=== PATIENT | female | born 1940 | race Caucasian/White ===

== ENCOUNTER 2017-05-03 12:40 | Inpatient (IN) | payer MEDICARE, OTHER ==
[2017-05-03] MEDS: IV NORMAL SALINE 1000ML BAG 1,000 ML IV ×2 (12:48→16:25)
[2017-05-03 13:15] LABS: ADD MAN DIFF? NO
[2017-05-03 13:18] LABS: BASO % 1 % (0-3); EOS # 0.1 x10^3/uL (0.0-0.7); EOS % 1 % (0-3); HEMATOCRIT 38.9 % (36.0-47.0); HEMOGLOBIN 12.6 g/dL (12.0-15.5); LYMPH # 1.7 x10^3/uL (1.0-4.8); LYMPH % 19 % (24-48); MEAN CORPUSCULAR HEMOGLOBIN 30 pg (25-35); MEAN CORPUSCULAR HGB CONC 32 g/dL (31-37); MEAN CORPUSCULAR VOLUME 93 fL (79-100); MONO # 0.7 x10^3/uL (0.0-1.1); MONO % 7 % (0-9); NEUT # 6.8 x10^3uL (1.8-7.7); NEUT % 73 % (31-73); PLATELET COUNT 205 x10^3/uL (140-400); RED BLOOD COUNT 4.21 x10^6/uL (3.50-5.40); RED CELL DISTRIBUTION WIDTH 14.3 % (11.5-14.5); WHITE BLOOD COUNT 9.3 x10^3/uL (4.0-11.0)
[2017-05-03 13:34] LABS: ANION GAP 12 (6-14); BLOOD UREA NITROGEN 26 mg/dL (7-20); CALCIUM 8.7 mg/dL (8.5-10.1); CARBON DIOXIDE 25 mmol/L (21-32); CHLORIDE 105 mmol/L (98-107); CREATININE 0.6 mg/dL (0.6-1.0); GFR 97.7; GLUCOSE 277 mg/dL (70-99); POTASSIUM 4.4 mmol/L (3.5-5.1); SODIUM 142 mmol/L (136-145)
[2017-05-03 13:41] LABS: ALBUMIN 3.6 g/dL (3.4-5.0); ALK PHOS 73 U/L (46-116); ALT (SGPT) 25 U/L (14-59); AST (SGOT) 22 U/L (15-37); DIRECT BILIRUBIN < 0.1 mg/dL (0.0-0.2); LIPASE 80 U/L (73-393); MAGNESIUM 1.7 mg/dL (1.8-2.4); TOTAL BILIRUBIN 0.7 mg/dL (0.2-1.0)
[2017-05-03 13:42] LABS: TROPONINI < 0.017 ng/mL (0.000-0.055)
[2017-05-03 14:01] LABS: CKMB INDEX 0.7 % (0-4); CKMB MASS 0.6 ng/mL (0.0-3.6); CREATINE KINASE 83 U/L (26-192)
[2017-05-03 14:01] LABS: NT-PRO BNP 141 pg/mL (0-124)
[2017-05-03] MEDS ORDERED: ONDANSETRON PF 4 MG/2 ML VIAL. IV (14:45)
[2017-05-03 15:40] LABS: POC GLUCOSE 202 mg/dL (70-99)
[2017-05-03 16:29] LABS: POC GLUCOSE 209 mg/dL (70-99)
[2017-05-03] MEDS: ASCORBIC ACID 500 MG TABLET PO (16:40)
[2017-05-03] MEDS: OMEGA-3 FATTY ACIDS/FISH OIL 1,000 MG CAPSULE. PO (16:40)
[2017-05-03] MEDS: ASPIRIN ENTERIC COATED 81 MG TABLET.DR. PO (16:40)
[2017-05-03 16:51] LABS: BILIRUBIN,URINE NEGATIVE (NEG); CLARITY,URINE CLEAR; COLOR,URINE YELLOW; GLUCOSE,URINE >=1000 mg/dL (NEG); NITRITE,URINE NEGATIVE (NEG); PH,URINE 5.5; PROTEIN,URINE NEGATIVE (NEG-TRACE); UROBILINOGEN,URINE 0.2 mg/dL (0.2 mg/dL)
[2017-05-03] MEDS: INSULIN ASPART 300 UNITS/3 ML INSULN.PEN SQ (17:01)
[2017-05-03 17:13] LABS: BACTERIA,URINE FEW /HPF (0-FEW); RBC,URINE 0 /HPF (0-2); SQUAMOUS EPITHELIAL CELL,UR FEW /LPF
[2017-05-03 18:49] LABS: TROPONINI < 0.017 ng/mL (0.000-0.055)
[2017-05-03] MEDS: diazePAM 5 MG TABLET PO (20:44)
[2017-05-03] MEDS: ATORVASTATIN CALCIUM 10 MG TABLET. PO (20:44)
[2017-05-03 20:48] LABS: POC GLUCOSE 112 mg/dL (70-99)
[2017-05-03] MEDS: INSULIN DETEMIR 300 UNITS/3 ML INSULN.PEN. SQ (20:51)
[2017-05-03 21:39] LABS: TROPONINI < 0.017 ng/mL (0.000-0.055)
[2017-05-04] MEDS: IV NORMAL SALINE 1000ML BAG 1,000 ML IV (01:59)
[2017-05-04] MEDS: INSULIN ASPART 300 UNITS/3 ML INSULN.PEN SQ (07:30)
[2017-05-04] MEDS ORDERED: DEXTROSE 50% 25 GM / 50ML DISP.SYRIN. IV (07:45)
[2017-05-04] MEDS: DEXTROSE 50% 25 GM / 50ML DISP.SYRIN. IV (07:53)
[2017-05-04 07:58] LABS: POC GLUCOSE 27 mg/dL (70-99)
[2017-05-04 08:00] LABS: POC GLUCOSE 211 mg/dL (70-99)
[2017-05-04 08:11] LABS: POC GLUCOSE 194 mg/dL (70-99)
[2017-05-04 08:31] LABS: ADD MAN DIFF? NO
[2017-05-04 08:35] LABS: BASO % 0 % (0-3); EOS # 0.1 x10^3/uL (0.0-0.7); EOS % 1 % (0-3); HEMATOCRIT 32.5 % (36.0-47.0); HEMOGLOBIN 10.8 g/dL (12.0-15.5); LYMPH # 1.3 x10^3/uL (1.0-4.8); LYMPH % 18 % (24-48); MEAN CORPUSCULAR HEMOGLOBIN 31 pg (25-35); MEAN CORPUSCULAR HGB CONC 33 g/dL (31-37); MEAN CORPUSCULAR VOLUME 93 fL (79-100); MONO # 0.4 x10^3/uL (0.0-1.1); MONO % 6 % (0-9); NEUT # 5.4 x10^3uL (1.8-7.7); NEUT % 75 % (31-73); PLATELET COUNT 163 x10^3/uL (140-400); RED CELL DISTRIBUTION WIDTH 14.2 % (11.5-14.5); WHITE BLOOD COUNT 7.3 x10^3/uL (4.0-11.0)
[2017-05-04] MEDS ORDERED: NON FORMULARY ITEM (Alendronate Sodium 70 MG) PO (09:00)
[2017-05-04 09:03] LABS: ANION GAP 7 (6-14); BLOOD UREA NITROGEN 13 mg/dL (7-20); CALCIUM 7.5 mg/dL (8.5-10.1); CARBON DIOXIDE 27 mmol/L (21-32); CHLORIDE 110 mmol/L (98-107); CREATININE 0.7 mg/dL (0.6-1.0); GFR 81.8; GLUCOSE 206 mg/dL (70-99); SODIUM 144 mmol/L (136-145)
[2017-05-04 09:17] LABS: POTASSIUM 2.9 mmol/L (3.5-5.1)
[2017-05-04] MEDS: ASPIRIN ENTERIC COATED 81 MG TABLET.DR. PO (09:18)
[2017-05-04] MEDS: POTASSIUM CHLORIDE 20 MEQ TABLET.ER. PO (10:11)
[2017-05-04] MEDS: ACETAMINOPHEN 325 MG TABLET. PO (10:50)
[2017-05-04 11:28] LABS: POC GLUCOSE 143 mg/dL (70-99)
[2017-05-04] MEDS ORDERED: INSULIN GLARGINE HUM REC ANLOG 15 UNIT SQ (16:00)
[2017-05-04] MEDS ORDERED: INSULIN ASPART 300 UNITS/3 ML INSULN.PEN SQ (16:30)
== END 2017-05-04 13:58 | disposition home or self-care (01) | DRG 392 ==
LOC: ER 12:40 → 5 NORTH 14:39
DX: A08.4 Viral intestinal infection, unspecified (principal); E11.9 Type 2 diabetes mellitus without complications; F41.9 Anxiety disorder, unspecified; F32.9 Major depressive disorder, single episode, unspecified; Z88.2 Allergy status to sulfonamides; Z79.4 Long term (current) use of insulin
CPT/HCPCS: 36415; 80048; 80076; 81001; 82553; 82962; 83690; 83735; 83880; 84484; 85025; 87086; 93005; 96360; 99285-25; J1815; J7030; J7042

== ENCOUNTER → 2018-08-03 | Outpatient (CLI) | payer MEDICARE, OTHER ==
[2017-05-04 11:00] VITALS: BP 94/44
[~2018-08-03] MED LIST: ALEN70TA6 PO; ASCO500C PO; ASPI-482 PO; ASPI-630 PO; DIAZ5TAB4 PO; FISH1CAP PO; INSU100C4 SQ; INSU100V13 SUBCUT; INSU100V8 SQ; LORA0.5T PO; LOVA20TA2 PO; MULT-505 PO; OMEG1CAP6 PO; VITA100075 PO
--- NOTE | 2018-08-03 16:17 | KCIC ---
Examination: TOES RIGHT History: Right great toe injury and pain. Swelling and erythema. Comparison/Correlation: None Findings: Total of 4 images of the right great toe were obtained. Fracture is noted involving the proximal findings of the great toe at its distal medial metaphyseal aspect extending intra-articularly. Mild displacement of the fracture fragment is noted. Osteopenia noted. Impression: Acute fracture involving right first digit proximal phalanx at its distal aspect extending intra-articularly with mild displacement Electronically signed by: Lele Thurston MD (08/03/2018 4:14 PM) [id number]
== END | disposition home or self-care (01) ==
LOC: KCIC 08:57
PROVIDERS: ATTEND Family Medicine
DX: S92.411A Displaced fracture of proximal phalanx of right great toe, initial encounter for closed fracture (principal); M85.88 Other specified disorders of bone density and structure, other site; X58.XXXA Exposure to other specified factors, initial encounter; Y93.89 Activity, other specified; Y92.89 Other specified places as the place of occurrence of the external cause; Y99.8 Other external cause status
CPT/HCPCS: 73660

== ENCOUNTER 2019-02-17 12:20 | Inpatient (IN) | payer MEDICARE, OTHER ==
[~2019-02-17] VITALS: Ht 162.6 cm; Wt 52.6 kg
[2019-02-17] MEDS ORDERED: IV NORMAL SALINE 1000ML BAG 1,000 ML IV ONE ×2 (13:00)
[2019-02-17 13:02] LABS: BASO # 0.1 x10^3/uL (0.0-0.2); BASO % 1 % (0-3); EOS % 0 % (0-3); HEMATOCRIT 36.8 % (36.0-47.0); HEMOGLOBIN 11.9 g/dL (12.0-15.5); LYMPH # 1.9 x10^3/uL (1.0-4.8); LYMPH % 22 % (24-48); MEAN CORPUSCULAR HEMOGLOBIN 30 pg (25-35); MEAN CORPUSCULAR HGB CONC 32 g/dL (31-37); MEAN CORPUSCULAR VOLUME 92 fL (79-100); MONO # 0.6 x10^3/uL (0.0-1.1); MONO % 7 % (0-9); NEUT % 70 % (31-73); PLATELET COUNT 247 x10^3/uL (140-400); RED BLOOD COUNT 3.99 x10^6/uL (3.50-5.40); RED CELL DISTRIBUTION WIDTH 14.3 % (11.5-14.5); WHITE BLOOD COUNT 8.6 x10^3/uL (4.0-11.0)
--- NOTE | 2019-02-17 13:10 | RAD ---
EXAM: Chest, single view. HISTORY: Shortness of air. COMPARISON: None. FINDINGS: A frontal view of the chest obtained. There is suspected right lower lobe interstitial infiltrate superimposed on suspected chronic interstitial changes. There is no consolidation, pleural effusion or pneumothorax. The heart is normal in size for portable technique. IMPRESSION: Suspected right lower lobe interstitial infiltrate superimposed on chronic interstitial changes. Electronically signed by: Korina Leach MD (02/17/2019 1:07 PM) [place] [id number]
[2019-02-17 13:13] LABS: CALCIUM 8.8 mg/dL (8.5-10.1); GFR 53.9; POTASSIUM 4.9 mmol/L (3.5-5.1)
[2019-02-17 13:21] LABS: ALBUMIN 3.7 g/dL (3.4-5.0); ALBUMIN/GLOBULIN RATIO 1.2 (1.0-1.7); TOTAL BILIRUBIN 0.8 mg/dL (0.2-1.0); TOTAL PROTEIN 6.8 g/dL (6.4-8.2)
[2019-02-17 13:25] LABS: BILIRUBIN,URINE NEGATIVE (NEG); CLARITY,URINE CLEAR; COLOR,URINE YELLOW; NITRITE,URINE NEGATIVE (NEG); PROTEIN,URINE NEGATIVE (NEG-TRACE); UROBILINOGEN,URINE 0.2 mg/dL (0.2 mg/dL)
[2019-02-17 13:32] LABS: HYALINE CASTS, URINE FEW /HPF; SQUAMOUS EPITHELIAL CELL,UR FEW /LPF
[2019-02-17 13:42] LABS: BACTERIA,URINE 0 /HPF (0-FEW); RBC,URINE 0 /HPF (0-2)
[2019-02-17] MEDS ORDERED: INSULIN REGULAR 100 UNIT/ML 3ML VIAL. SQ ONE (14:45)
[2019-02-17] MEDS ORDERED: ONDANSETRON PF 4 MG/2 ML VIAL. IVP ONE (14:45)
--- NOTE | 2019-02-17 14:59 | PHYS DOC ---
Past Medical History Past Medical History: Anxiety, Depression, Diabetes-Type II Past Surgical History: Tonsillectomy, Other Additional Past Surgical Histo: breast augmentation & silicone removal Alcohol Use: None Drug Use: None Adult General Chief Complaint Chief Complaint: HYPERGLYCEMIA HPI HPI Patient is a 78 year old female with history of insulin-dependent diabetes who presents with hyperglycemia and nausea. Patient states her blood sugars have remained in the 250-350 range for the past several weeks. She reports increasing home extremities. Patient has been compliant with eating Lantus and mealtime NovoLog states sugars were greater than 400 this morning which is higher than they have ever been. Patient also reports nausea. Denies chest pain palpitations, shortness breath. No fever chills or sweats. No urinary frequency urgency or dysuria. No other acute symptoms or complaints. [] Review of Systems Review of Systems Review of symptoms as per history of present illness. All other review symptoms are negative. All other systems were reviewed and found to be within normal limits, except as documented in this note. Current Medications Current Medications Current Medications Medications (Trade) Dose Ordered Sig/Esthela Start Time Stop Time Status Last Admin Dose Admin Azithromycin 250 ml @ 250 mls/hr 1X ONCE 02/17/19 15:00 02/17/19 15:59 DC 02/17/19 15:50 250 MLS/HR Azithromycin (Zithromax) 1,000 mg 1X ONCE 02/17/19 15:00 02/17/19 15:01 UNV Insulin Human Regular (HumuLIN R VIAL) 8 unit 1X ONCE 02/17/19 14:45 02/17/19 14:46 DC 02/17/19 15:02 8 UNIT Ondansetron HCl (Zofran) 4 mg 1X ONCE 02/17/19 14:45 02/17/19 14:46 DC 02/17/19 15:01 4 MG Sodium Chloride 1,000 ml @ 1,000 mls/hr 1X ONCE 02/17/19 13:00 02/17/19 13:59 DC 02/17/19 13:08 1,000 MLS/HR Allergies Allergies Allergies Coded Allergies Type Severity Reaction Last Updated Verified Sulfa (Sulfonamide Antibiotics) Allergy Intermediate 05/03/17 Yes Physical Exam Physical Exam Constitutional: Well developed, well nourished, no acute distress, non-toxic appearance. [] HENT: Normocephalic, atraumatic, bilateral external ears normal. [] Eyes: PERRLA, EOMI, conjunctiva normal, no discharge. [] Neck: Normal range of motion. [] Cardiovascular:Heart rate regular rhythm, no murmur [] Lungs & Thorax: Bilateral breath sounds clear to auscultation [] Abdomen: Bowel sounds normal, soft, no tenderness. [] Skin: Warm, dry, no rash. [] Back: No tenderness. [] Extremities: No tenderness, no edema. [] Neurologic: Alert and oriented X 3, normal motor function, normal sensory function, no focal deficits noted. [] Psychologic: Affect normal, judgement normal, mood normal. [] Current Patient Data Vital Signs Vital Signs Date Time Temp Pulse Resp B/P (MAP) Pulse Ox O2 Delivery O2 Flow Rate FiO2 02/17/19 12:23 97.9 104 18 126/56 (79) 100 Room Air 97.9 Lab Values Laboratory Tests Test 02/17/19 12:29 02/17/19 12:30 02/17/19 13:15 02/17/19 14:40 Glucose (Fingerstick) 491 mg/dL (70-99) H 405 mg/dL (70-99) H White Blood Count 8.6 x10^3/uL (4.0-11.0) Red Blood Count 3.99 x10^6/uL (3.50-5.40) Hemoglobin 11.9 g/dL (12.0-15.5) L Hematocrit 36.8 % (36.0-47.0) Mean Corpuscular Volume 92 fL (79-100) Mean Corpuscular Hemoglobin 30 pg (25-35) Mean Corpuscular Hemoglobin Concent 32 g/dL (31-37) Red Cell Distribution Width 14.3 % (11.5-14.5) Platelet Count 247 x10^3/uL (140-400) Neutrophils (%) (Auto) 70 % (31-73) Lymphocytes (%) (Auto) 22 % (24-48) L Monocytes (%) (Auto) 7 % (0-9) Eosinophils (%) (Auto) 0 % (0-3) Basophils (%) (Auto) 1 % (0-3) Neutrophils # (Auto) 6.0 x10^3/uL (1.8-7.7) Lymphocytes # (Auto) 1.9 x10^3/uL (1.0-4.8) Monocytes # (Auto) 0.6 x10^3/uL (0.0-1.1) Eosinophils # (Auto) 0.0 x10^3/uL (0.0-0.7) Basophils # (Auto) 0.1 x10^3/uL (0.0-0.2) Sodium Level 136 mmol/L (136-145) Potassium Level 4.9 mmol/L (3.5-5.1) Chloride Level 98 mmol/L (98-107) Carbon Dioxide Level 19 mmol/L (21-32) L Anion Gap 19 (6-14) H Blood Urea Nitrogen 26 mg/dL (7-20) H Creatinine 1.0 mg/dL (0.6-1.0) Estimated GFR (Cockcroft-Gault) 53.9 BUN/Creatinine Ratio 26 (6-20) H Glucose Level 500 mg/dL (70-99) *H Calcium Level 8.8 mg/dL (8.5-10.1) Total Bilirubin 0.8 mg/dL (0.2-1.0) Aspartate Amino Transferase (AST) 21 U/L (15-37) Alanine Aminotransferase (ALT) 25 U/L (14-59) Alkaline Phosphatase 85 U/L (46-116) Troponin I Quantitative < 0.017 ng/mL (0.000-0.055) Total Protein 6.8 g/dL (6.4-8.2) Albumin 3.7 g/dL (3.4-5.0) Albumin/Globulin Ratio 1.2 (1.0-1.7) Acetone Level Sm pos (NEG) Urine Color Yellow Urine Clarity Clear Urine pH 5.0 Urine Specific [place] >=1.030 Urine Protein Negative mg/dL (NEG-TRACE) Urine Glucose (UA) >=1000 mg/dL (NEG) Urine Ketones (Stick) >=80 mg/dL (NEG) Urine Blood Negative (NEG) Urine Nitrite Negative (NEG) Urine Bilirubin Negative (NEG) Urine Urobilinogen Dipstick 0.2 mg/dL (0.2 mg/dL) Urine Leukocyte Esterase Negative (NEG) Urine RBC 0 /HPF (0-2) Urine WBC 1-4 /HPF (0-4) Urine Squamous Epithelial Cells Few /LPF Urine Bacteria 0 /HPF (0-FEW) Urine Hyaline Casts Few /HPF Urine Mucus Mod /LPF Laboratory Tests 02/17/19 12:30 Laboratory Tests 02/17/19 12:30 EKG EKG EKG: reviewed[] Radiology/Procedures Radiology/Procedures CXR: Suspected right lower lobe infiltrate per radiology report[] Course & Med Decision Making Course & Med Decision Making Pertinent Labs and Imaging studies reviewed. (See chart for details) [Hyperglycemia with likely acute compliant due to bacterial pneumonia. IV fluids, antibiotics given. Vital signs stable. Will admit to Dr. Hines] Dragon Disclaimer Dragon Disclaimer This electronic medical record was generated, in whole or in part, using a voice recognition dictation system. Departure Departure Impression: Primary Impression: Hyperglycemia Additional Impression: Pneumonia Disposition: ADMITTED INPATIENT Condition: IMPROVED Referrals: TOBI HINES MD (PCP) Problem Qualifiers GALA RENTERIA DO Feb 17, 2019 14:59
[2019-02-17] MEDS ORDERED: AZITHROMYCIN 250 MG TABLET. PO ONE (15:00)
[2019-02-17] MEDS ORDERED: AZITHRMYCN 500MG IVPB FOR OMNI 250 ML IV ONE ×2 (15:00→16:15)
[2019-02-17] MEDS ORDERED: IV DEXTROSE 5% 250 ML BAG. IV PRN (16:15)
[2019-02-17] MEDS ORDERED: ONDANSETRON PF 4 MG/2 ML VIAL. IV PRN (16:15)
[2019-02-17] MEDS ORDERED: DEXTROSE 50% 25 GM / 50ML DISP.SYRIN. IV PRN (16:15)
[2019-02-17] MEDS ORDERED: INSULIN LISPRO 300 UNITS/3 ML VIAL. SQ SCH (17:00)
[2019-02-17 17:10] VITALS: BP 107/46
[2019-02-17] MEDS: IV NORMAL SALINE 1000ML BAG 1,000 ML IV SCH (18:37)
[2019-02-17] MEDS: cefTRIAXone IV Push 1 GM VIAL. IVP SCH (18:37)
[2019-02-17 19:00] VITALS: BP 103/45
[2019-02-17] MEDS ORDERED: INSULIN GLARGINE SYRINGE. SQ SCH (21:00)
[2019-02-17] MEDS: ATORVASTATIN CALCIUM 10 MG TABLET. PO SCH (21:04)
[2019-02-17] MEDS: diazePAM 5 MG TABLET PO SCH (21:04)
[2019-02-17 23:00] VITALS: BP_SYST 43
[2019-02-18 03:00] VITALS: BP 89/34
[2019-02-18 05:47] LABS: BASO # 0.1 x10^3/uL (0.0-0.2); BASO % 1 % (0-3); EOS % 1 % (0-3); HEMATOCRIT 31.1 % (36.0-47.0); HEMOGLOBIN 10.4 g/dL (12.0-15.5); LYMPH # 2.4 x10^3/uL (1.0-4.8); LYMPH % 28 % (24-48); MEAN CORPUSCULAR HEMOGLOBIN 30 pg (25-35); MEAN CORPUSCULAR HGB CONC 33 g/dL (31-37); MEAN CORPUSCULAR VOLUME 91 fL (79-100); MONO # 0.6 x10^3/uL (0.0-1.1); MONO % 7 % (0-9); NEUT # 5.5 x10^3/uL (1.8-7.7); NEUT % 64 % (31-73); PLATELET COUNT 205 x10^3/uL (140-400); RED BLOOD COUNT 3.44 x10^6/uL (3.50-5.40); RED CELL DISTRIBUTION WIDTH 14.1 % (11.5-14.5); WHITE BLOOD COUNT 8.6 x10^3/uL (4.0-11.0)
[2019-02-18 06:07] LABS: CALCIUM 7.8 mg/dL (8.5-10.1); CREATININE 0.7 mg/dL (0.6-1.0); GFR 81.4
[2019-02-18 07:00] VITALS: BP 89/42
[2019-02-18] MEDS: IV NORMAL SALINE 1000ML BAG 1,000 ML IV SCH (07:55)
--- NOTE | 2019-02-18 08:59 | PDOC ---
Provider Note Provider Note [id number] TOBI CACERES MD Feb 18, 2019 08:59
[2019-02-18] MEDS ORDERED: OMEGA-3 FATTY ACIDS/FISH OIL 1,000 MG CAPSULE. PO SCH (09:00)
[2019-02-18] MEDS ORDERED: ASCORBIC ACID 500 MG TABLET PO SCH (09:00)
--- NOTE | 2019-02-18 09:21 | HP ---
ADMIT DATE: 02/17/2019 CHIEF COMPLAINT: Cough, fever, vomiting. HISTORY OF PRESENT ILLNESS: A 78-year-old white female who has a history of labile type 1 diabetes and is managed with low doses of insulin and NovoLog. Her last office visit was about 4 months ago and everything was stable. She says she began experiencing nausea and vomiting on the day of admission with mild cough and was found to have a mild right lower lobe infiltrate present and the blood sugar was high at 500. She responded to IV insulin and then got a little bit low this morning, but generally feels better. PAST MEDICAL HISTORY: Well documented in the old records. MEDICATIONS: Listed per the chart. ALLERGIES: Listed to SULFA. VACCINATIONS: She has had a flu vaccination this year. SOCIAL HISTORY: Nonsmoker. . Nondrinker. Lives with her brother. FAMILY HISTORY: Unremarkable. REVIEW OF SYSTEMS: No other known problems. OBJECTIVE: ENT: All within normal limits. NECK: No masses, nodes, or bruits. LUNGS: Decreased breath sounds with few crackles in the right lung base. CARDIOVASCULAR: Regular rate. Grade 2 systolic murmur in the upper right sternal border. ABDOMEN: Benign, soft, nontender. EXTREMITIES: Good pedal and radial pulses. No joint or skin lesions or nail bed findings. NEUROLOGIC: Physiologic. ASSESSMENT: 1. Community-acquired pneumonia, right lower lobe. 2. Labile, type 1 diabetes mellitus, reasonably well controlled with hyperglycemia and likely secondary to the illness. PLAN: Continue Rocephin, azithromycin, and monitor blood sugars. Likely discharge on 02/19 if stable. TOBI CACERES MD DR: AMARIS/ben JOB#: [id number] / [id number]
[2019-02-18] MEDS: AZITHROMYCIN 250 MG TABLET. PO SCH (10:32)
[2019-02-18] MEDS: ASPIRIN ENTERIC COATED 81 MG TABLET.DR. PO SCH (10:32)
[2019-02-18] MEDS: INSULIN GLARGINE SYRINGE. SQ SCH ×2 (10:38→20:57)
[2019-02-18] MEDS: INSULIN LISPRO 300 UNITS/3 ML VIAL. SQ SCH ×3 (10:39→17:13)
[2019-02-18 11:00] VITALS: BP 91/48
[2019-02-18] MEDS: OMEGA-3 FATTY ACIDS/FISH OIL 1,000 MG CAPSULE. PO SCH (12:49)
[2019-02-18 15:00] VITALS: BP 102/52
[2019-02-18] MEDS ORDERED: AZITHROMYCIN 500 MG in IV NORMAL SALINE 250ML 250 ML IV ONE (15:00)
[2019-02-18] MEDS: cefTRIAXone IV Push 1 GM VIAL. IVP SCH (17:08)
[2019-02-18 19:15] VITALS: BP 102/50
[2019-02-18] MEDS: LACTOBACILLUS RHAMNOSUS GG 1 CAPSULE. PO SCH (20:55)
[2019-02-18] MEDS: diazePAM 5 MG TABLET PO SCH (20:55)
[2019-02-18] MEDS: ATORVASTATIN CALCIUM 10 MG TABLET. PO SCH (20:56)
[2019-02-18 23:08] LABS: HEMOGLOBIN A1C 7.4 % (4.8-5.6)
[2019-02-18 23:29] VITALS: BP 136/55
[2019-02-19 03:37] VITALS: BP 130/72
[2019-02-19] MEDS: INSULIN GLARGINE SYRINGE. SQ SCH (06:20)
[2019-02-19 07:00] VITALS: BP 132/50
[2019-02-19] MEDS: AZITHROMYCIN 250 MG TABLET. PO SCH (08:49)
[2019-02-19] MEDS: LACTOBACILLUS RHAMNOSUS GG 1 CAPSULE. PO SCH (08:50)
[2019-02-19] MEDS: ASPIRIN ENTERIC COATED 81 MG TABLET.DR. PO SCH (08:50)
[2019-02-19] MEDS: OMEGA-3 FATTY ACIDS/FISH OIL 1,000 MG CAPSULE. PO SCH (08:50)
[2019-02-19] MEDS: INSULIN LISPRO 300 UNITS/3 ML VIAL. SQ SCH ×2 (08:59→11:46)
--- NOTE | 2019-02-19 09:54 | PDOC ---
Provider Note Provider Note [id number] TOBI CACERES MD Feb 19, 2019 09:54
[2019-02-19 11:00] VITALS: BP 122/60
--- NOTE | 2019-02-19 13:06 | DS ---
DATE OF DISCHARGE: 02/19/2019 HOSPITAL SUMMARY: A 78-year-old white female who came in with weakness, fatigue, and hyperglycemia. Blood sugar was 500. Her A1c was good at 7.4. CBC and chemistry profile were unremarkable and blood sugars were lower after admission. Urine showed large amounts of sugar and some ketones. Chest x-ray showed right lower lobe infiltrate. She was treated with IV Rocephin and azithromycin and is feeling better and is afebrile and blood sugar control was much better and she is comfortable to be followed as an outpatient at this point. FINAL DIAGNOSES: 1. Community-acquired pneumonia, right lower lobe. 2. Labile type 1 diabetes mellitus with hyperglycemia. OPERATIONS: None. PROCEDURES: None. COMPLICATIONS: None. CONSULTATIONS: None. DISPOSITION: She will take azithromycin 250 mg daily for 3 more days, amoxicillin 500 mg 3 times a day for 5 more days. Office followup as scheduled next week. We will review her vaccination schedule and her labs. Prognosis is good. She is to change her insulin to Lantus 10 units at bedtime instead of a lower dose, but lower than NovoLog from 7 units with meals to 4 units with meals to avoid the hyperglycemia and labile sugars she has been having. TOBI CACERES MD DR: AMARIS/ben JOB#: [id number] / [id number]
[2019-02-19] MEDS ORDERED: INSULIN GLARGINE SYRINGE. SQ SCH (21:00)
== END 2019-02-19 11:59 | disposition home or self-care (01) | DRG 637 ==
LOC: ER 12:20 → 6 SOUTH 15:20 → 4 NORTH 02-18 15:22
PROVIDERS: ADMIT Family Medicine; ATTEND Family Medicine
DX: E10.65 Type 1 diabetes mellitus with hyperglycemia (principal); J18.9 Pneumonia, unspecified organism; Z79.4 Long term (current) use of insulin; F32.9 Major depressive disorder, single episode, unspecified; F41.9 Anxiety disorder, unspecified; Z88.2 Allergy status to sulfonamides
CPT/HCPCS: 36415; 71045; 80048; 80053; 81001; 82010; 82962; 83036; 84484; 85025; 87040; 96361; 96365; 96372; 96375; J0456; J0696; J1815; J2405; J7030; J7042; Q0144; 99285-25; G0378

== ENCOUNTER → 2019-07-18 | Outpatient (CLI) | payer MEDICARE, OTHER | END | disposition home or self-care (01) | LOC: LAB 12:42 | PROVIDERS: ATTEND Internal Medicine Gastroenterology | DX: Z11.59 Encounter for screening for other viral diseases (principal) | CPT/HCPCS: U0003-CS ==

== ENCOUNTER → 2019-07-22 | Day surgery (SDC) | payer MEDICARE, OTHER ==
[~2019-07-22] MED LIST changes: +HYDROmorphone 2 MG/ML VIAL IV PRN; +IV RINGERS,LACTATED 1000ML 1,000 ML IV SCH; +MORPHINE SULFATE 2 MG/ML VIAL. IV PRN; +ONDANSETRON PF 4 MG/2 ML VIAL. IV PRN; +PROCHLORPERAZINE 10 MG/2 ML VIAL. IV PRN; +PROPOFOL 10 MG/ML (20ML) VIAL. IV ONE; +fentaNYL PF VIAL 100 MCG/2 ML VIAL IV PRN
--- NOTE | 2019-07-22 10:01 | HP ---
ADMIT DATE: 07/22/2019 UPDATED HISTORY AND PHYSICAL REASON: History of colonic polyps and change in bowel habits with constipation. HISTORY OF PRESENT ILLNESS: This is a 78-year-old female whose past medical history is significant for constipation, diabetes, depression, anxiety, history of colonic polyps who is seen with increasing abdominal distention and infrequent hard stools. She has had increased difficulties for the past several years. Prior colonoscopy over 5 years ago did reveal colonic polyps. There has been no bleeding. Weight and appetite have been stable. With continued issues, she is here today for further evaluation. PAST MEDICAL HISTORY: Colonic polyps, anxiety, depression, diabetes. ALLERGIES: SULFA. MEDICATIONS: Include Fosamax, ascorbic acid, aspirin, diazepam, insulin, lovastatin, omega-3. FAMILY HISTORY: Significant for CVA with her mother, diabetes with her sister and LA with her father. SOCIAL HISTORY: She is a former smoker and nondrinker. PAST SURGICAL HISTORY: Significant for breast surgery, eye surgery and tonsillectomy. REVIEW OF SYSTEMS: Per records. PHYSICAL EXAMINATION: GENERAL: Reveals a well-nourished, well-developed female who is alert, cooperative, in no acute distress. VITAL SIGNS: Temperature 97, pulse 87, respirations 20. LUNGS: Clear. CARDIOVASCULAR: Reveals an S1, S2 without S3, S4 or appreciable murmur. ABDOMEN: Reveals a soft abdomen, normal bowel sounds, without appreciable hepatosplenomegaly. EXTREMITIES: Reveal no cyanosis, clubbing or edema. IMPRESSION AND PLAN: Constipation, change in bowel habits with history of colonic polyps. Differential includes diverticular disease, colon cancer, recurrent colonic polyps, colonic inertia. Therefore, recommend colonoscopy to further assess. Risks and benefits of the procedure including risk of hemorrhage and perforation during the operation were discussed. The patient is willing to proceed at this time. MEHDI MORTON MD DR: JUS/ben JOB#: [id number] / [id number]
[2019-07-22 10:06] VITALS: BP 100/51
== END ==
LOC: ENDOS 07:52
PROVIDERS: ATTEND Internal Medicine Gastroenterology
DX: K59.00 Constipation, unspecified (principal); K57.30 Diverticulosis of large intestine without perforation or abscess without bleeding; K64.0 First degree hemorrhoids; E11.9 Type 2 diabetes mellitus without complications; F32.9 Major depressive disorder, single episode, unspecified; F41.9 Anxiety disorder, unspecified; Z86.010 Personal history of colon polyps; Z88.1 Allergy status to other antibiotic agents; Z87.891 Personal history of nicotine dependence; Z79.84 Long term (current) use of oral hypoglycemic drugs
CPT/HCPCS: 45378; J2704

== ENCOUNTER → 2020-05-26 | Emergency (ER) | payer MEDICARE, OTHER ==
[2019-07-22 10:06] VITALS: BP 100/51
[~2020-05-26] MED LIST changes: -ALEN70TA6 PO; +ALEN70TA71 PO; -HYDROmorphone 2 MG/ML VIAL IV PRN; -IV RINGERS,LACTATED 1000ML 1,000 ML IV SCH; -MORPHINE SULFATE 2 MG/ML VIAL. IV PRN; -ONDANSETRON PF 4 MG/2 ML VIAL. IV PRN; -PROCHLORPERAZINE 10 MG/2 ML VIAL. IV PRN; -PROPOFOL 10 MG/ML (20ML) VIAL. IV ONE; -fentaNYL PF VIAL 100 MCG/2 ML VIAL IV PRN
== END ==
LOC: ER 15:20
DX: R10.9 Unspecified abdominal pain (principal); Z53.21 Procedure and treatment not carried out due to patient leaving prior to being seen by health care provider

== ENCOUNTER 2020-09-11 14:05 | Inpatient (IN) | payer MEDICARE ==
[~2020-09-11] VITALS: Ht 157.5 cm; Wt 53.9 kg
[2020-09-11] MEDS ORDERED: ONDANSETRON PF 4 MG/2 ML VIAL. IVP ONE (14:30)
[2020-09-11] MEDS ORDERED: IV RINGERS,LACTATED 1000ML 1,000 ML IV SCH (14:30)
--- NOTE | 2020-09-11 14:34 | PHYS DOC ---
Past Medical History Past Medical History: Anxiety, Depression, Diabetes-Type II Additional Past Medical Histor: Parkinson's Past Surgical History: Tonsillectomy, Other Additional Past Surgical Histo: breast augmentation & silicone removal Smoking Status: Never Smoker Alcohol Use: None Drug Use: None General Adult EDM: Chief Complaint: HYPERGLYCEMIA Problems: (1) Vomiting HPI: HPI: 79-year-old female presents to the emergency department with multiple complaints including 2 episodes of vomiting earlier today, nausea and hyperglycemia. She has been at [facility] for the past 4 to 5 days and she admits that she is getting her insulin treatments as per regular, but she is unable to state what her insulin regimen is. She was found to have hyperglycemia greater than 500 in the field with EMS but otherwise did not have any further complaints with vitals stable. She currently does not have any acute complaints other than fatigue and nausea. She denies any recent illness, Covid infection. The patient denies nausea, vomiting, fever, chills, chest pain, shortness of breath, abdominal pain, urinary symptoms, cough, recent trauma, or any other complaints. Review of Systems: Review of Systems: Constitutional: Admits to fatigue, denies fever. Eyes: Denies change in vision, pain. HENT: Denies congestion or sore throat. Respiratory: Denies cough or shortness of breath. Cardiovascular: Denies chest pain or edema. GI: Denies abdominal pain, admits to nausea, vomiting. : Denies change in urination, dysuria. Musculoskeletal: Denies extremity pain, or trauma. Skin: Denies rash, skin change. Neurologic: Denies headache, focal weakness. Psychiatric: Denies depression or anxiety. All other systems reviewed as negative except for what was mentioned in the HPI. Heart Score: C/O Chest Pain: No Family History: Family History: Noncontributory Current Medications: My Orders - ELDON BUNCH DO Procedure Category Date Status Time Vital Signs Monitoring ER 09/11/20 Transmitted 14:24 Blood Pressure ER 09/11/20 Transmitted Monitoring 14:24 Cardiac Monitoring ER 09/11/20 Transmitted 14:24 Continuous Pulse Ox ER 09/11/20 Transmitted 14:24 Cbc W Autodiff LAB 09/11/20 Complete 14:24 Comprehensive LAB 09/11/20 Complete Metabolic Panel 14:24 Magnesium LAB 09/11/20 Complete 14:24 Ua, Cult If Indicated LAB 09/11/20 Logged 14:24 Iv Ringers,Lactated PHA 09/11/20 Complete 1000ml (Iv Lactated 14:30 Ondansetron Pf PHA 09/11/20 Complete (Zofran) 14:30 Insulin Lispro PHA 09/11/20 In Process (Humalog) 16:30 Blood Glucose NEFTALI 09/11/20 In Process Assessment 14:24 Lipase LAB 09/11/20 Complete 14:24 12 Lead Ekg EKG 09/11/20 Logged 14:31 Nt-Pro Bnp LAB 09/11/20 In Process 14:31 Troponini LAB 09/11/20 Complete 14:31 Acetone LAB 09/11/20 Complete 14:31 Nursing Dka Protocol NEFTALI 09/11/20 In Process Instructi 15:41 Goal:Decreased Blood NEFTALI 09/11/20 In Process Glucose 15:41 Nurse To Perform Poct NEFTALI 09/11/20 In Process - Glucos Glucose Poct Q 2 H NEFTALI 09/11/20 In Process 15:41 Call Provider When NEFTALI 09/11/20 In Process Anion Gap I 15:[address] Lab NEFTALI 09/11/20 In Process Order 15:[address] Lab NEFTALI 09/11/20 In Process Order 15:41 Basic Metabolic Panel LAB 09/12/20 Verified 03:00 Insulin Regular Vial PHA 09/11/20 In Process (Humulin R Vial) 15:45 Potassium Chloride PHA 09/11/20 In Process 10meq (Kcl Premix 10m 15:45 Potassium Chloride PHA 09/11/20 In Process 10meq (Kcl Premix 10m 15:45 Potassium Chloride PHA 09/11/20 In Process 10meq (Kcl Premix 10m 15:45 Basic Metabolic Panel LAB 09/11/20 Logged 20:00 Er Bridge Order ADT 09/11/20 Transmitted 15:47 Code Status CODE 09/11/20 Transmitted 15:47 Vital Signs, Per Unit NEFTALI 09/11/20 In Process Protocol 15:47 RENAL DIET 09/11/20 Transmitted Dinner Ondansetron Pf PHA 09/11/20 Logged (Zofran) 16:00 Allergies: Allergies: Allergies Coded Allergies Type Severity Reaction Last Updated Verified Sulfa (Sulfonamide Antibiotics) Allergy Intermediate 07/22/19 Yes Physical Exam: PE: Constitutional: No acute distress, non-toxic appearance. HENT: Atraumatic, bilateral external ears normal, nose normal. Eyes: PERRLA, EOMI, conjunctiva normal, no discharge. Neck: Normal range of motion, supple, no stridor. Cardiovascular: Heart rate regular rhythm. 2+ radial pulses Lungs & Thorax: No respiratory distress, symmetrical expansion. Abdomen: Soft, no tenderness Skin: Warm, dry. Extremities: No tenderness, no cyanosis, ROM intact, no edema. Neurologic: Alert and oriented X 3, normal motor function, normal sensory function, no focal deficits noted. Non ataxic gait. GCS 15. Psychologic: Affect normal, judgment normal, mood normal. Current Patient Data: Labs: Laboratory Tests Test 09/11/20 14:17 Glucose (Fingerstick) 435 mg/dL (70-99) H Vital Signs: Vital Signs Date Time Temp Pulse Resp B/P (MAP) Pulse Ox O2 Delivery O2 Flow Rate FiO2 09/11/20 14:10 98.2 94 17 99/52 (69) 95 Room Air 98.2 EKG: EKG: Normal sinus rhythm rate of 94, no ST-T wave changes, no ectopic beats, normal axis, normal ND, QRS, and QTc intervals. Impression: Normal EKG. interpreted by meEldon D.O. Course & Med Decision Making: Course & Med Decision Making Patient with evidence for mild DKA with positive acetone, anion gap of 21 and hyperglycemia which is likely result of poor administration of insulin at the nursing facility. The patient did come with a log of her glucose readings from the nursing facility that was very irregular. Patient will be admitted to Dr. Brock's service patient in improved condition in the emergency department with stable vital signs. Departure Departure Impression: Primary Impression: Diabetic ketoacidosis Disposition: ADMITTED INPATIENT Admitting Physician: Jose Brock Condition: STABLE Referrals: TOBI CACERES MD (PCP) ELDON BUNCH DO Sep 11, 2020 14:34
[2020-09-11 14:40] LABS: BASO # 0.1 x10^3/uL (0.0-0.2); BASO % 1 % (0-3); EOS % 0 % (0-3); HEMOGLOBIN 13.4 g/dL (12.0-15.5); LYMPH # 1.2 x10^3/uL (1.0-4.8); LYMPH % 10 % (24-48); MEAN CORPUSCULAR HEMOGLOBIN 31 pg (25-35); MEAN CORPUSCULAR HGB CONC 33 g/dL (31-37); MEAN CORPUSCULAR VOLUME 94 fL (79-100); MONO # 0.9 x10^3/uL (0.0-1.1); MONO % 7 % (0-9); NEUT # 10.3 x10^3/uL (1.8-7.7); NEUT % 83 % (31-73); PLATELET COUNT 375 x10^3/uL (140-400); RED BLOOD COUNT 4.35 x10^6/uL (3.50-5.40); RED CELL DISTRIBUTION WIDTH 14.8 % (11.5-14.5); WHITE BLOOD COUNT 12.5 x10^3/uL (4.0-11.0)
[2020-09-11 14:56] LABS: CALCIUM 9.4 mg/dL (8.5-10.1); CREATININE 1.5 mg/dL (0.6-1.0); GFR 33.7; POTASSIUM 5.2 mmol/L (3.5-5.1)
[2020-09-11 15:06] LABS: ALBUMIN 3.4 g/dL (3.4-5.0); ALBUMIN/GLOBULIN RATIO 0.9 (1.0-1.7); MAGNESIUM 2.1 mg/dL (1.8-2.4); TOTAL BILIRUBIN 0.7 mg/dL (0.2-1.0); TOTAL PROTEIN 7.3 g/dL (6.4-8.2)
[2020-09-11] MEDS ORDERED: POTASSIUM CHLORIDE 10MEQ 100 ML IV PRN ×3 (15:45)
[2020-09-11] MEDS ORDERED: INSULIN REGULAR VIAL 100 UNIT in IV NORMAL SALINE 100ML 100 ML IV PRN (15:45)
[2020-09-11] MEDS ORDERED: INSULIN LISPRO 300 UNITS/3 ML VIAL. SQ SCH (16:30)
--- NOTE | 2020-09-11 16:47 | EKG ---
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
[2020-09-11] MEDS: ONDANSETRON PF 4 MG/2 ML VIAL. IVP PRN (17:35)
[2020-09-11] MEDS ORDERED: IV NORMAL SALINE 1000ML BAG 1,000 ML IV ONE (18:00)
[2020-09-11 18:09] LABS: CALCIUM 8.9 mg/dL (8.5-10.1); CREATININE 1.2 mg/dL (0.6-1.0); GFR 43.6; POTASSIUM 4.8 mmol/L (3.5-5.1)
[2020-09-11 18:14] LABS: PHOSPHORUS 4.4 mg/dL (2.6-4.7)
[2020-09-11] MEDS ORDERED: DEXTROSE 50% 25 GM / 50ML DISP.SYRIN. IV PRN (18:45)
--- NOTE | 2020-09-11 19:58 | NUR ---
FSBG= 164; per protocol no SSI administered and per MD orders insulin gtt to be discontinued at 2029.
[2020-09-11 20:15] VITALS: BP 128/48
[2020-09-11 20:20] LABS: CALCIUM 8.7 mg/dL (8.5-10.1); CREATININE 1.1 mg/dL (0.6-1.0); GFR 48.2; POTASSIUM 3.9 mmol/L (3.5-5.1)
--- NOTE | 2020-09-11 20:30 | NUR ---
Insulin gtt discontinued at this time.
--- NOTE | 2020-09-11 21:00 | NUR ---
ADMIT ORDERS The patient, LEIA BERTRAND, 79 y/o, F admitted by TOBI CACERES MD, was given written information regarding hospital policies, unit procedures and contact persons. Patient orientated to room, belongings checked/left in room, plan of care discussed, and admit packet reviewed. Patient's allergies and home medications verified via report sheet from [facility]. notified of patient's admit to floor and orders rcvd. Patient in bed resting, bed in lowest/locked position, bed alarm active, and call light within reach; no other needs voiced at this time.
[2020-09-11] MEDS ORDERED: MELA3TAB4 PO (21:17)
[2020-09-11] MEDS ORDERED: CARB1TAB22 PO (21:17)
[2020-09-11] MEDS ORDERED: LISI-517 PO (21:17)
[2020-09-11] MEDS ORDERED: DOCU100C28 PO (21:17)
[2020-09-11] MEDS ORDERED: ACET325T21 PO (21:17)
[2020-09-11] MEDS ORDERED: CHOLECALCIFEROL PO (21:17)
[2020-09-11] MEDS ORDERED: BISA-42 PO (21:17)
[2020-09-11] MEDS ORDERED: BISACODYL 5 MG TABLET.DR. PO PRN (21:30)
[2020-09-11] MEDS ORDERED: ACETAMINOPHEN 325 MG TABLET. PO PRN (21:30)
[2020-09-11] MEDS: TEMAZEPAM 15 MG CAPSULE PO PRN (22:00)
[2020-09-11] MEDS: CARBIDOPA/LEVODOPA 25/100MG TABLET PO SCH (22:00)
[2020-09-11] MEDS: PROCHLORPERAZINE 10 MG/2 ML VIAL. IV PRN (22:01)
[2020-09-11 23:00] VITALS: BP 160/61
[2020-09-12] MEDS ORDERED: INSULIN LISPRO 300 UNITS/3 ML VIAL. SQ ONE (00:30)
[2020-09-12] MEDS ORDERED: INSULIN GLARGINE SYRINGE. SQ ONE ×2 (00:30→08:30)
[2020-09-12 03:03] VITALS: BP 127/51
[2020-09-12 07:00] VITALS: BP 106/38
[2020-09-12 07:07] LABS: CALCIUM 8.8 mg/dL (8.5-10.1); CREATININE 1.1 mg/dL (0.6-1.0); GFR 48.2
[2020-09-12] MEDS: ONDANSETRON PF 4 MG/2 ML VIAL. IVP PRN (08:03)
[2020-09-12] MEDS: INSULIN LISPRO 300 UNITS/3 ML VIAL. SQ SCH ×3 (08:32→17:00)
[2020-09-12] MEDS ORDERED: ASCORBIC ACID 500 MG TABLET PO SCH (09:00)
[2020-09-12] MEDS ORDERED: ASPIRIN ENTERIC COATED 81 MG TABLET.DR. PO SCH (09:00)
[2020-09-12] MEDS ORDERED: OMEGA-3 FATTY ACIDS/FISH OIL 1,000 MG CAPSULE. PO SCH (09:00)
[2020-09-12] MEDS ORDERED: LISINOPRIL 5 MG TABLET. PO SCH (09:00)
[2020-09-12] MEDS ORDERED: DOCUSATE SODIUM 100 MG CAPSULE. PO SCH (09:00)
--- NOTE | 2020-09-12 09:12 | HP ---
ADMIT DATE: 09/11/2020 CHIEF COMPLAINT: Weakness, nausea and vomiting. HISTORY OF PRESENT ILLNESS: A 79-year-old white female who is insulin-dependent diabetic. ____ since admission about 3 weeks ago after weakness ____. She began having nausea and vomiting and threw up some coffee-ground material and was hyperglycemic with mild acidosis as well. She denies melena, hematochezia, hematemesis, fever, chills or any other complaints. PAST MEDICAL HISTORY: Last hemoglobin A1c was 7.6 two months ago. MEDICATIONS: Listed per the chart. ALLERGIES: Listed as well. SOCIAL HISTORY: She is . Nonsmoker, nondrinker. Living at rehab currently. FAMILY HISTORY: Unremarkable. REVIEW OF SYSTEMS: Unremarkable. OBJECTIVE: ENT: No pallor. NECK: No masses, nodes or bruits. LUNGS: Clear. No tachypnea. CARDIOVASCULAR: Regular rate. Heart rate normal. No murmurs heard. ABDOMEN: Flat, soft, benign and nontender. EXTREMITIES: Good pedal and radial pulses. No active joint or skin lesions. NEUROLOGIC: Physiologic. ASSESSMENT: 1. Coffee-ground emesis, nausea and vomiting, likely gastritis. She takes aspirin and vitamin C as possible culprits. 2. Hyperglycemia with mild ketosis. 3. Generalized weakness, deconditioning and asthenia. PLAN: IV Protonix, oral Carafate. A1c. Modified insulin regimen. IV fluids. She requests DNR and order was written. JOSE/CELESTE DR: Vitaliy TID: [id number]
[2020-09-12] MEDS: IV NORMAL SALINE 1000ML BAG 1,000 ML IV SCH ×2 (09:17→19:19)
[2020-09-12] MEDS: CHOLECALCIFEROL (VITAMIN D3) 1,000 UNIT TABLET PO SCH (09:17)
[2020-09-12] MEDS: CARBIDOPA/LEVODOPA 25/100MG TABLET PO SCH ×3 (09:17→21:24)
[2020-09-12 11:00] VITALS: BP 121/55
[2020-09-12] MEDS: SUCRALFATE 1 GM TABLET. PO SCH ×3 (11:52→21:24)
[2020-09-12 15:00] VITALS: BP 117/49
[2020-09-12 19:00] VITALS: BP 131/62
[2020-09-12] MEDS ORDERED: INSULIN GLARGINE SYRINGE. SQ SCH ×2 (21:00)
[2020-09-12] MEDS: PROCHLORPERAZINE 10 MG/2 ML VIAL. IV PRN (21:24)
[2020-09-12] MEDS: TEMAZEPAM 15 MG CAPSULE PO PRN (21:24)
--- NOTE | 2020-09-12 21:25 | NUR ---
Patient refused scheduled dose of Lantus this evening d/t FSBG level of 105; med non-administered on eMAR.
[2020-09-12 23:00] VITALS: BP 117/58
[2020-09-13 00:08] LABS: HEMOGLOBIN A1C 8.7 % (4.8-5.6)
[2020-09-13 03:00] VITALS: BP 112/61
[2020-09-13] MEDS: IV NORMAL SALINE 1000ML BAG 1,000 ML IV SCH ×2 (04:33→16:33)
[2020-09-13] MEDS: PANTOPRAZOLE IV PUSH 40 MG VIAL. IVP SCH (05:37)
[2020-09-13 07:00] VITALS: BP 121/63
[2020-09-13] MEDS: INSULIN LISPRO 300 UNITS/3 ML VIAL. SQ SCH ×3 (08:00→17:33)
--- NOTE | 2020-09-13 08:24 | PDOC ---
Provider Note Date of Service: DATE: 09/13/20 TIME: 08:22 Provider Note vss, sleeping, no dyspnea- hemogram pending, glucose good but no insulin last 24 hrs re low po intake- cont iv protonix/carafate re suspected gastritis, follow, same iv fluids Justifications for Admission Other Justification TOBI CACERES MD Sep 13, 2020 08:23
[2020-09-13] MEDS: SUCRALFATE 1 GM TABLET. PO SCH ×4 (09:16→21:16)
[2020-09-13] MEDS: CARBIDOPA/LEVODOPA 25/100MG TABLET PO SCH ×3 (09:16→21:16)
[2020-09-13] MEDS: CHOLECALCIFEROL (VITAMIN D3) 1,000 UNIT TABLET PO SCH (09:16)
[2020-09-13 11:00] VITALS: BP 110/57
[2020-09-13 12:39] LABS: HEMATOCRIT 33.9 % (36.0-47.0); HEMOGLOBIN 11.3 g/dL (12.0-15.5); RED BLOOD COUNT 3.62 x10^6/uL (3.50-5.40); RED CELL DISTRIBUTION WIDTH 14.6 % (11.5-14.5); WHITE BLOOD COUNT 8.8 x10^3/uL (4.0-11.0)
[2020-09-13 15:00] VITALS: BP 109/51
[2020-09-13 19:00] VITALS: BP 109/51
--- NOTE | 2020-09-13 19:17 | NUR ---
Patients orthostatics are as follows Laying on bed - 109/51 HR 82, O2 sat 95 on RA Sitting on bed - 126/49 HR 114, O2 sat 94 RA Standing - 122/53 HR 115, O2 sat 92 on RA Addendum: 09/13/20 at 1919 by ADRIANO COBOS RN RN Disregard last note, wrong patient
[2020-09-13] MEDS: TEMAZEPAM 15 MG CAPSULE PO PRN (21:16)
[2020-09-13] MEDS: INSULIN GLARGINE SYRINGE. SQ SCH (21:25)
[2020-09-13 23:00] VITALS: BP 126/61
[2020-09-14] MEDS: IV NORMAL SALINE 1000ML BAG 1,000 ML IV SCH (00:20)
[2020-09-14 02:46] VITALS: BP 132/63
[2020-09-14] MEDS: SUCRALFATE 1 GM TABLET. PO SCH ×4 (05:44→21:01)
[2020-09-14] MEDS: PANTOPRAZOLE IV PUSH 40 MG VIAL. IVP SCH (05:44)
[2020-09-14 07:00] VITALS: BP 136/60
[2020-09-14] MEDS: INSULIN LISPRO 300 UNITS/3 ML VIAL. SQ SCH ×3 (08:00→18:08)
[2020-09-14] MEDS: CHOLECALCIFEROL (VITAMIN D3) 1,000 UNIT TABLET PO SCH (08:35)
[2020-09-14] MEDS: CARBIDOPA/LEVODOPA 25/100MG TABLET PO SCH ×3 (08:35→21:01)
[2020-09-14 08:40] LABS: CALCIUM 7.9 mg/dL (8.5-10.1); CREATININE 0.5 mg/dL (0.6-1.0); GFR 119.6; POTASSIUM 3.4 mmol/L (3.5-5.1)
--- NOTE | 2020-09-14 08:55 | PDOC ---
Provider Note Date of Service: DATE: 09/14/20 TIME: 08:54 Provider Note less nausea, no emesis- good po now- hb ok- will dc iv, po protonix, no more asa , placement as she wants a new location Justifications for Admission Other Justification TOBI CACERES MD Sep 14, 2020 08:55
[2020-09-14 10:57] VITALS: BP 136/66
[2020-09-14] MEDS: PANTOPRAZOLE 40 MG TABLET.DR. PO SCH (12:30)
[2020-09-14 15:00] VITALS: BP 115/62
[2020-09-14 19:00] VITALS: BP 124/61
[2020-09-14] MEDS: TEMAZEPAM 15 MG CAPSULE PO PRN (21:00)
[2020-09-14] MEDS: INSULIN GLARGINE SYRINGE. SQ SCH (21:11)
[2020-09-14 23:00] VITALS: BP 120/62
[2020-09-15 03:00] VITALS: BP 130/65
[2020-09-15 07:00] VITALS: BP 97/67
[2020-09-15] MEDS: PANTOPRAZOLE 40 MG TABLET.DR. PO SCH (09:51)
[2020-09-15] MEDS: SUCRALFATE 1 GM TABLET. PO SCH ×4 (09:51→21:03)
[2020-09-15] MEDS: CARBIDOPA/LEVODOPA 25/100MG TABLET PO SCH ×3 (09:52→21:03)
[2020-09-15] MEDS: CHOLECALCIFEROL (VITAMIN D3) 1,000 UNIT TABLET PO SCH (09:52)
[2020-09-15] MEDS: INSULIN LISPRO 300 UNITS/3 ML VIAL. SQ SCH ×3 (09:57→18:31)
[2020-09-15 11:00] VITALS: BP 125/64
--- NOTE | 2020-09-15 13:44 | PN ---
DATE: 09/15/2020 DAILY PROGRESS NOTE LOCATION: She is in room 402. SUBJECTIVE: This 79-year-old female remains hospitalized with diabetic ketoacidosis. This is essentially resolved at this point with blood sugars much better in the 170-220 range over the last 24 hours. Her carbon dioxide levels have returned to normal. She is awake, alert, mildly confused, which is her baseline. White count has returned to normal from admission. OBJECTIVE: VITAL SIGNS: Stable. She is afebrile. GENERAL: She is awake, alert, mildly confused. Does not want to return to [facility] living. CHEST: Clear. HEART: Regular. ABDOMEN: Benign. LABORATORY DATA: Sugars as noted above. ASSESSMENT: 1. Diabetic ketoacidosis, improved. 2. Diabetes. 3. Vomiting, resolved. PLAN: Continue present care. Discharge when location can be determined. CELINE DR: Lamar TID: [id number]
[2020-09-15 15:00] VITALS: BP 116/59
[2020-09-15 19:00] VITALS: BP 122/66
[2020-09-15] MEDS: TEMAZEPAM 15 MG CAPSULE PO PRN (21:03)
[2020-09-15] MEDS: INSULIN GLARGINE SYRINGE. SQ SCH (21:08)
[2020-09-15 23:00] VITALS: BP 129/70
[2020-09-16 02:35] VITALS: BP 128/62
[2020-09-16 07:00] VITALS: BP 137/67
[2020-09-16] MEDS: INSULIN LISPRO 300 UNITS/3 ML VIAL. SQ SCH ×3 (07:51→17:35)
[2020-09-16] MEDS: SUCRALFATE 1 GM TABLET. PO SCH ×4 (09:09→20:14)
[2020-09-16] MEDS: CHOLECALCIFEROL (VITAMIN D3) 1,000 UNIT TABLET PO SCH (09:09)
[2020-09-16] MEDS: CARBIDOPA/LEVODOPA 25/100MG TABLET PO SCH ×3 (09:09→20:15)
[2020-09-16] MEDS: PANTOPRAZOLE 40 MG TABLET.DR. PO SCH (09:09)
[2020-09-16 11:00] VITALS: BP 134/62
[2020-09-16 15:00] VITALS: BP 117/52
[2020-09-16 19:00] VITALS: BP 107/53
[2020-09-16] MEDS: LUBIPROSTONE 24 MCG CAPSULE PO SCH (20:15)
[2020-09-16] MEDS: INSULIN GLARGINE SYRINGE. SQ SCH (20:28)
[2020-09-16] MEDS: TEMAZEPAM 15 MG CAPSULE PO PRN (22:12)
[2020-09-16] MEDS ORDERED: TEMAZEPAM 15 MG CAPSULE PO PRN (22:15)
[2020-09-16 23:00] VITALS: BP 124/65
--- NOTE | 2020-09-16 23:29 | PN ---
DATE: 09/16/2020 DAILY PROGRESS NOTE LOCATION: She is in room 402. SUBJECTIVE: This 79-year-old female remains hospitalized with diabetic ketoacidosis. This is essentially resolved with decent blood sugars at this point in time. She is awake, alert and major complaint today is constipation and she would like [facility] for the same as it has worked in the past. OBJECTIVE: VITAL SIGNS: Stable. She is afebrile. GENERAL: She is awake, alert. CHEST: Clear. HEART: Regular. ABDOMEN: Benign. Sugars are acceptable. IMPRESSION: 1. Diabetic ketoacidosis, improved. 2. Diabetes. 3. Vomiting, resolved. 4. Constipation. 5. Question on destination as far as ongoing living following this hospitalization. PLAN: 1. Continue present care. 2. [facility]. 3. services advisor is working on placement. HAYLEE/KORY DR: Lamar TID: [id number]
[2020-09-17 06:30] VITALS: BP 140/79
--- NOTE | 2020-09-17 08:27 | PDOC ---
Provider Note Date of Service: DATE: 09/17/20 TIME: 08:26 Provider Note sleeping, status stable- glucose fine, can dc on protonix and no asa, placement pending Justifications for Admission Other Justification TOBI CACERES MD Sep 17, 2020 08:27
[2020-09-17] MEDS: LUBIPROSTONE 24 MCG CAPSULE PO SCH ×2 (08:28→17:24)
[2020-09-17] MEDS: PANTOPRAZOLE 40 MG TABLET.DR. PO SCH (08:28)
[2020-09-17] MEDS: CARBIDOPA/LEVODOPA 25/100MG TABLET PO SCH ×3 (08:28→20:21)
[2020-09-17] MEDS: CHOLECALCIFEROL (VITAMIN D3) 1,000 UNIT TABLET PO SCH (08:29)
[2020-09-17 10:48] VITALS: BP 106/48
[2020-09-17] MEDS: INSULIN LISPRO 300 UNITS/3 ML VIAL. SQ SCH ×2 (13:19→17:28)
[2020-09-17 15:00] VITALS: BP 110/54
[2020-09-17 19:00] VITALS: BP 110/57
[2020-09-17] MEDS: TEMAZEPAM 15 MG CAPSULE PO PRN (20:21)
[2020-09-17] MEDS: INSULIN GLARGINE SYRINGE. SQ SCH (20:26)
[2020-09-17 23:05] VITALS: BP 105/63
[2020-09-18 02:27] VITALS: BP 110/57
[2020-09-18 07:00] VITALS: BP 127/66
--- NOTE | 2020-09-18 08:05 | PDOC ---
Provider Note Date of Service: DATE: 09/18/20 TIME: 08:04 Provider Note vss, no more emesis, labs ok, glucose labile- more lantus, placement in progress Justifications for Admission Other Justification TOBI CACERES MD Sep 18, 2020 08:05
[2020-09-18] MEDS: CHOLECALCIFEROL (VITAMIN D3) 1,000 UNIT TABLET PO SCH (09:00)
[2020-09-18] MEDS: CARBIDOPA/LEVODOPA 25/100MG TABLET PO SCH ×3 (09:40→20:03)
[2020-09-18] MEDS: PANTOPRAZOLE 40 MG TABLET.DR. PO SCH (09:40)
[2020-09-18] MEDS: LUBIPROSTONE 24 MCG CAPSULE PO SCH ×2 (09:40→16:19)
[2020-09-18] MEDS: INSULIN LISPRO 300 UNITS/3 ML VIAL. SQ SCH ×3 (09:50→16:23)
[2020-09-18 11:07] VITALS: BP 96/43
[2020-09-18] MEDS ORDERED: PANT40TA77 PO (14:31)
[2020-09-18 15:00] VITALS: BP 97/42
[2020-09-18 19:55] VITALS: BP 128/61
[2020-09-18] MEDS: TEMAZEPAM 15 MG CAPSULE PO PRN (20:04)
[2020-09-18] MEDS ORDERED: INSULIN GLARGINE SYRINGE. SQ SCH (21:00)
[2020-09-18 23:11] VITALS: BP 122/62
[2020-09-19 03:00] VITALS: BP 136/64
[2020-09-19] MEDS: PANTOPRAZOLE 40 MG TABLET.DR. PO SCH (06:17)
[2020-09-19 07:00] VITALS: BP 136/63
[2020-09-19] MEDS: LUBIPROSTONE 24 MCG CAPSULE PO SCH (08:05)
[2020-09-19] MEDS: INSULIN LISPRO 300 UNITS/3 ML VIAL. SQ SCH (08:10)
--- NOTE | 2020-09-19 08:36 | SNU/HH DC ---
DISCHARGE ORDERS DISCHARGE INFORMATION: FINAL DIAGNOSIS Problems Medical Problems: (1) Diabetic ketoacidosis Status: Acute CONDITION ON DISCHARGE: Stable CODE STATUS: Code Status: DNR/DNI [facility]CI: SNF STAY <30 DAYS: No POST DISCHARGE ORDERS: ACTIVITY ORDERS: No restrictions, Activity as tolerated WEIGHT BEARING STATUS: As tolerated DIET AFTER DISCHARGE: ADA CHECKS AFTER DISCHARGE: CHECKS AFTER DISCHARGE: Check blood sugar, ac/hs TREATMENT/EQUIPMENT ORDERS: ADAPTIVE EQUIPMENT NEEDED: None DISCHARGE MEDICATIONS: Home Meds Reported Medications Pantoprazole Sodium (PANTOPRAZOLE SODIUM ) 40 Mg Tablet.dr, 40 MG PO DAILYAC for GERD, #30 TAB 09/18/20 [Cholecalciferol] No Conflict Check, 2000 UNITS PO DAILY for SUPPLEMENT 09/11/20 Melatonin (MELATONIN) 3 Mg Tablet, 1 TAB PO QHS for Insomnia, #30 TAB 09/11/20 Lisinopril (LISINOPRIL) 5 Mg Tablet, 5 MG PO DAILY for FOR HYPERTENSION, #30 TAB 0 Refills 09/11/20 Bisacodyl (DULCOLAX) 5 Mg Tablet.dr, 5 MG PO PRN BID PRN for CONSTIPATION, TAB 0 Refills 09/11/20 Docusate Sodium (DOCUSATE SODIUM) 100 Mg Capsule, 1 CAP PO DAILY for constipation for 30 Days, #30 CAP 0 Refills 09/11/20 Carbidopa/Levodopa (CARBIDOPA-LEVODOPA 25-100 TAB) 1 Each Tablet, 1 TAB PO TID for RLS for 30 Days, #90 TAB 0 Refills 09/11/20 Acetaminophen (ACETAMINOPHEN) 325 Mg Tablet, 650 MG PO PRN Q6HRS PRN for MILD PAIN / TEMP > 100.3'F, TAB 09/11/20 [place]-3 Fatty Acids/Fish Oil (FISH OIL 1,000 MG CAPSULE) 1 Each Capsule, 1 EACH PO DAILY, CAP 05/03/17 Insulin Detemir (LEVEMIR) 100 Unit/1 Ml Vial, 10 UNITS SUBCUT HS 05/03/17 Ascorbic Acid (VITAMIN C) 500 Mg Capsule.er, 500 MG PO DAILY 06/17/13 Discontinued Reported Medications Aspirin (ASPIR 81) 81 Mg Tablet., 81 MG PO DAILY, TAB 05/03/17 TOBI CACERES MD Sep 19, 2020 08:36
--- NOTE | 2020-09-19 08:40 | PDOC ---
Provider Note Date of Service: DATE: 09/19/20 TIME: 08:38 Provider Note [id number] Justifications for Admission Other Justification TOBI CACERES MD Sep 19, 2020 08:40
--- NOTE | 2020-09-19 08:56 | DS ---
DATE OF DISCHARGE: 09/18/2020 HOSPITAL SUMMARY: A 79-year-old white female admitted with some hyperglycemia and also nausea and vomiting with coffee-ground emesis. COVID serology was negative. Hemoglobin dropped from 13 to 11 and chemistry profile was unremarkable except for mildly elevated BUN. Hemoglobin A1c was 8.7. Urine was positive for acetone, small amount. No cultures were obtained. No x-rays were done. She was treated with IV fluids. Short term IV insulin and IV Protonix with oral Carafate for presumed gastritis, likely from aspirin use. Gastritis symptoms stopped fairly quickly within a couple days. She was able to resume a regular diet and is now a candidate for placement as she has been off IV fluids and taking p.o. well in the last 3-4 days. FINAL DIAGNOSES: 1. Acute hemorrhagic gastritis, likely secondary to aspirin use. 2. Type 2 diabetes, insulin-dependent, labile, control. OPERATIONS, PROCEDURES, COMPLICATIONS AND CONSULTATION: None. DISPOSITION: She remains a DNR patient. She is off aspirin from now on. She will take Protonix 40 mg daily for 1 month. Continue same insulin regimen with low dose of Lantus, sliding and Humalog. Activity as tolerated. Prognosis is guarded. NAY DR: Vitaliy TID: [id number]
[2020-09-19] MEDS: CARBIDOPA/LEVODOPA 25/100MG TABLET PO SCH (09:09)
[2020-09-19] MEDS: CHOLECALCIFEROL (VITAMIN D3) 1,000 UNIT TABLET PO SCH (09:09)
--- NOTE | 2020-09-19 11:23 | NUR ---
[facility] here at 1100 to take pt to [facility]. Left at 1110.
== END 2020-09-19 11:10 | DRG 377 ==
LOC: ER 14:05 → 4 NORTH 15:36
PROVIDERS: ADMIT Family Medicine; ATTEND Family Medicine
DX: K29.01 Acute gastritis with bleeding (principal); E11.10 Type 2 diabetes mellitus with ketoacidosis without coma; G20 Parkinson's disease; K59.00 Constipation, unspecified; Z79.4 Long term (current) use of insulin; Z79.82 Long term (current) use of aspirin; F32.9 Major depressive disorder, single episode, unspecified; F41.9 Anxiety disorder, unspecified; Z88.2 Allergy status to sulfonamides; Z66 Do not resuscitate; Z79.899 Other long term (current) drug therapy; T39.015A Adverse effect of aspirin, initial encounter; Y92.89 Other specified places as the place of occurrence of the external cause; Z20.822 Contact with and (suspected) exposure to COVID-19
CPT/HCPCS: 36415; 80048; 80053; 82010; 82962; 83036; 83690; 83735; 83880; 84100; 84484; 85025; 85027; 87426; 93005; 96365; 96366; 96372; 96375; 96376; C9113; J0780; J1815; J2405; J7030; J7120; U0003; U0005; 97110-GP; 97530-GP; 97535-GO; 99285-25; G0378